=== PATIENT | male | born 1955 | race Caucasian/White ===

== ENCOUNTER 2021-11-09 19:35 | Emergency (ER) | payer MEDICARE ==
[2021-11-09 20:00] LABS: EOSINOPHIL 2.7 % (0-7); HCT 40.7 % (42.0-52.0); HGB 12.9 g/dl (13.2-18.0); LYMPHOCYTE 8.6 % (15-48); MCH 26.6 pg (25.0-31.0); MCHC 31.7 g/dL (32.0-36.0); MCV 83.9 fL (78.0-100.0); MONOCYTE 10.7 % (0-12); MPV 9.9 fL (6.0-9.5); NEUTROPHIL 76.5 % (41-80); NRBC 0; PLT 351 K/uL (150-400); RBC 4.85 M/uL (4.70-6.00); RDW 15.1 % (11.5-14.0); WBC 17.8 K/uL (4.0-10.5)
[2021-11-09 20:20] LABS: ALBUMIN 3.2 g/dL (3.4-5.0); BILIRUBIN - TOTAL 0.3 mg/dL (0.2-1.0); BUN/CREAT RATIO (CALC) 11.3 RATIO; CREATININE 2.74 mg/dL (0.67-1.17); POTASSIUM 3.7 mmol/L (3.5-5.1); TOTAL PROTEIN 7.2 g/dL (6.4-8.2)
[2021-11-09 22:22] LABS: BASOPHIL 0.6 % (0-2); EOSINOPHIL 1.4 % (0-7); HCT 37.5 % (42.0-52.0); MCV 84.3 fL (78.0-100.0); MONOCYTE 8.4 % (0-12); MPV 10.1 fL (6.0-9.5); NEUTROPHIL 80.3 % (41-80); NRBC 0; PLT 327 K/uL (150-400); RBC 4.45 M/uL (4.70-6.00); WBC 20.2 K/uL (4.0-10.5)
[2021-11-09 22:35] LABS: BILIRUBIN NEGATIVE (NEGATIVE); BLOOD NEGATIVE Ery/uL (NEGATIVE); CLARITY CLEAR (CLEAR); COLOR YELLOW (YELLOW); GLUCOSE (U) NORMAL (NORMAL); LEUKOCYTES NEGATIVE Leu/uL (NEGATIVE); NITRITE NEGATIVE (NEGATIVE); PROTEIN NEGATIVE (NEGATIVE); UROBILINOGEN 0.2 mg/dL (0.2-1.0)
[2021-11-09 22:44] LABS: CREATININE 2.26 mg/dL (0.67-1.17); POTASSIUM 3.9 mmol/L (3.5-5.1)
== END 2021-11-09 23:49 | disposition home or self-care (01) ==
LOC: FER 19:35
PROVIDERS: Internal Medicine
DX: R55 Syncope and collapse (principal); E86.0 Dehydration; N17.9 Acute kidney failure, unspecified; D72.829 Elevated white blood cell count, unspecified; I10 Essential (primary) hypertension; E78.5 Hyperlipidemia, unspecified; Z28.310 Unvaccinated for COVID-19; Z88.0 Allergy status to penicillin; Z88.5 Allergy status to narcotic agent; Z79.899 Other long term (current) drug therapy
CPT/HCPCS: 36415; 80048; 80053; 81003; 82550; 84484; 85025; 93005; J7120